=== PATIENT | female | born 2000 | race Caucasian/White ===

== ENCOUNTER 2018-10-27 15:15 | Observation (INO) ==
[~2018-10-27 15:15] MED LIST: LIDOCAINE W/ SODIUM BICARB 0.5 ML SYR ONE; Lactated Ringers 1,000 ML PRIMARY IV ONE; MIDAZOLAM HCL 2 MG/2 ML VIAL ONE; PROPOFOL 10 MG/1 ML (200 MG/20 ML) VIAL IV ONE; SUCCINYLCHOLINE CHLORIDE 20 MG/1 ML - 10 ML ONE; Sodium Chloride 0.9% 100 ML IV ONE; fentaNYL Inj 100 MCG/2 ML VIAL ONE
[2018-10-27 15:21] LABS: Hematocrit [HCT] 36.8 % (37.0-47.0); Hemoglobin [HGB] 12.4 g/dL (12.0-16.0); MEAN CORPUSCULAR HEMOGLOBIN 28.8 PG (27-31); MEAN CORPUSCULAR HGB CONC 33.7 g/dL (33-37); MEAN CORPUSCULAR VOLUME 85.4 FL (81-99); MEAN PLATELET VOLUME 9.9 FL (7.4-12.2); RED BLOOD COUNT 4.31 10^6/uL (4.20-5.40)
[2018-10-27] MEDS ORDERED: METHYLERGONOVINE MALEATE 0.2 MG/1 ML VIAL IM ONE (15:24)
--- NOTE | 2018-10-27 15:26 | OB.OP.NOTE ---
Operative Report Surgeon: Jose Anesthesia Type: General Anesthesia Provider: Federico Victoria CRNA Surgery Date: 10/27/18 Preoperative Diagnosis: Incomplete AB, Anembryonic gestation, vaginal bleeding Postoperative Diagnosis: Same Procedure: Exam under anesthesia. Suction D&C Estimated Blood Loss (mL): 100 Fluids: 1500 mL LR. Mefoxin 2 g IV. Methergine 0.2 mg IM. 50 mL of urine. EBL was 100 mL. The patient may have had 200 EBL in the clinic. Complications: None apparent No evidence of uterine perforation Findings at Surgery: The uterus sounded to 9.5 cm There was some tissue extracted with the suction curettage Good hemostasis at the completion of the suction D&C Indications for the Procedure: The patient is a 17-year-old last menstrual period who was [place] [facility] [place] 22 [place] and had a quantitative hCG 4781 with a come plane of vaginal bleeding. Ultrasound at that time showed an irregular gestational sac without a yolk sac or intrauterine . The patient was then seen in [place] on Thursday for increased bleeding. No ultrasound was completed. Quantitative hCG was sent out and we retrieved that result today and was 2101. The patient had an ultrasound and quantitative hCG today here which showed that the quantitative hCG was 521 and the ultrasound did not show a gestational sac. There was some tissue which measured 1-1/2 cm in total thickness which was thought to perhaps be retained products versus clot. The patient presents today for follow-up. The patient's having some cramping and some bleeding but the bleeding is much improved. Patient's blood type is Rh+-A positive. Past medical History without hypertension, diabetes or asthma. Past surgical history tonsils and adenoid No known drug allergies No tobacco, no alcohol, no drugs. Menarche age 8. This is the patient's first . Intake Chief Complaint: Menstrual irregularity Note(s): Patient is here for evaluation, miscarriage. [facility] Allergies Allergy/AdvReac Type Severity Reaction Status Date / Time No Known Allergies Allergy Verified 10/27/18 14:26 Home Medications Medication Instructions Recorded Confirmed Type NK [No Home Medications Reported] 05/28/13 10/27/18 History Multivitamin Tab 1 tab PO DAILY 10/21/18 10/27/18 History [ Plus Tab] Is last menstrual period known: LMP known Last menstrual period: 07/26/18 Visit Vitals 10/27/18 14:26 Blood Pressure 130/80 Blood Pressure Location Left Arm Blood Pressure Position Sitting Respiratory Rate 16 Pulse Rate 102 H Temperature 98.1 F Temperature Source Oral Pulse Ox 96 Review of Systems Const Reports as per HPI, Denies fatigue, Denies fever(s), Denies headache(s), Denies weight gain, Denies weight loss Eyes Denies blurry vision, Denies diplopia, Denies itchy eyes, Denies loss of vision, Denies pain ENT Denies abnormal hearing, Denies headache(s), Denies nasal discharge, Denies nasal obstruction, Denies sore throat Card Denies chest pain, Denies claudication, Denies dyspnea, Denies palpitations, Denies pedal edema Resp Denies cough, Denies dyspnea, Denies wheezing GI Denies abdominal pain, Denies constipation, Denies diarrhea, Denies nausea, Denies vomiting Reports as per HPI, Denies dysuria, Denies hematuria, Denies urinary frequency, Denies vaginal discharge Musc Denies abnormal gait, Denies back pain, Denies joint swelling, Denies muscle weakness Skin Denies changing lesions, Denies lesions, Denies pruritus, Denies rash Neuro Denies abnormal gait, Denies abnormal hearing, Denies focal weakness, Denies headache(s), Denies loss of vision Psych Denies abnormal sleep pattern, Denies anxiety, Denies irritability Endo Denies fatigue, Denies palpitations Casey/Lymph Denies easy bruising, Denies lymphadenopathy Aller/Immun Denies itchy eyes, Denies seasonal rhinorrhea, Denies uticaria, Denies wheezing Exam Const General: cooperative and comfortable; no in distress Orientation: alert and oriented x3 Resp Effort & Inspection: normal respiratory effort; no audible wheezes, labored, pursed lip breathing, retractions or stridor Auscultation: clear to auscultation bilaterally; no crackles, diminished lung sounds, rales, rhonchi or wheezes Cardio Rhythm: regular rhythm Heart Sounds: S1 normal and S2 normal; no click, gallop, murmur or rub GI Inspection: obesity Palpation: soft Auscultation: normal bowel sounds Other: The patient's cervix was open. There was a large clot at the cervical OS Clot was removed and some tissue was removed with the patient continued to bleed. Assessment & Plan Problems 1. Incomplete O03.4 The patient has an incomplete . Blood type is A+. The risks, benefits, alternatives and indication of a suction D&C were discussed with the patient. Infection, bleeding, pain, uterine perforation, damage to bowel, bladder, nerve, vessel, blood transfusion with associated risks, the risk of hysterectomy if bleeding were to continue, reaction to anesthesia possible and the low risk of were discussed with the patient. Consent form was signed. The patient is being brought to the operating room and to the hospital by ambulance from the medical office building secondary to the bleeding that the patient is having. Description of Procedure: The patient was taken to the operating room after the risks, benefits, alternatives and indication of the exam under anesthesia and suction D&C were discussed with the patient in detail and the consent forms were signed. The patient was placed in supine position on the operating room table and underwent general endotracheal anesthesia without complication. The patient had sequential compression devices on her feet. The patient was [facility] stirrups and the dorsal supine position. An exam under anesthesia was completed. There was some blood clot in the patient's vagina. The patient's cervix was open. I did not place my gloved digit through the patient's cervix to the lower uterine segment though. The patient was prepped and draped sterilely. A timeout for the patient and procedure and both were identified correctly. Patient's bladder was drained of urine about 50 mL. A weighted speculum was placed in the posterior vagina and a Craig retractor anteriorly and the cervix was visualized and a single-tooth tenaculum was used to grasp the anterior lip of the cervix. The uterus was sounded to 9.5 cm. The cervix was already dilated to a 30 Hanks dilator. A #9 and curved suction curette was selected. The curette was connected to the tubing and the suction sheeting was turned on and suction to 42-44 was noted on the dial. With my left hand I continue to hold the single-tooth tenaculum maintaining some traction. I placed the #9 curved curet through the patient's cervix into the uterine cavity and then applied the suction. Blood and some tissue were obtained. This was completed 3 different times initially. I then used the #9 suction curet again and obtained another small amount of tissue and some blood. Then there was minimal bleeding. A sharp curette was then used and there was a good crigh in all 4 quadrants. Surgeon 0.2 mg IM was administered by anesthesia. The procedure was then completed. Some exudate was noticed at the patient's urethra. A GC and chlamydia swab for PCR testing was completed by swabbing the patient's urethra. The tenaculum was removed from the anterior lip of the cervix. There is no bleeding from the anterior lip of the cervix. An bimanual exam under anesthesia showed that the patient's cervix was closing and there was minimal bleeding. I could not palpate the fundus of the uterus well secondary to the patient's body habitus. With the weighted speculum placed again and the Craig retractor there was minimal to no bleeding from the patient's cervix. Irrigation was used to irrigate the vaginal area and then suction. The procedure was completed. The patient was awakened from her general endotracheal anesthesia. The patient was brought to the PACU in stable condition. Of note, the patient did have mild hypertension with a blood pressure that was elevated on 10/21/2018 [place] [facility] [place] then she had a mildly elevated blood pressure in the PACU. Her blood pressure in the clinic was normal. In the operating room, the patient's blood pressure was normal and anesthesia felt comfortable administering the IM Methergine. Plan: The GC and chlamydia swab was brought to the lab so the test can be run. Anesthesia thought that the patient did very well hemodynamically in the operating room. In the PACU, the patient was questioned if she would be able to go home since she drove here and [place] more than an hour away where there is no significant hospital availability. The patient stated that she would need to stay the night since she would not be able to drive and she drove here. The plan was to admit the patient to observation overnight since she would not be able to drive home. The patient would be administered oral Methergine every 8 hours to continue to allow the uterus to clamp down.
[2018-10-27] MEDS ORDERED: CefOXitin Inj 2 GM in Sodium Chloride 0.9% 100 ML IV ONE (16:00)
[2018-10-27] MEDS ORDERED: KETOROLAC 30 MG/1 ML VIAL ONE (16:14)
[2018-10-27] MEDS ORDERED: IBUPROFEN 800 MG TABLET PO PRN (16:39)
[2018-10-27] MEDS ORDERED: HYDROcodone-APAP 5 MG -325 MG TABLET PO PRN (16:39)
--- NOTE | 2018-10-27 16:47 | CRNA.PROGR ---
Post Anesthesia Phase II - Post Anesthesia Phase II Patient Stable and Discharged To: Phase II Care Assumed By Surgeon: Augustine Garcia MD Temperature: 96.8 F Pulse Rate: 87 Respiratory Rate: 12 Blood Pressure: 134/90 Pulse Ox: 98 Total Rand Score at Discharge: 10 Post Anesthesia Discharge Criteria Met: Yes
--- NOTE | 2018-10-27 16:47 | CRNA.PROGR ---
Anesthesia Time - Procedure/Recovery Time Start Date: 10/27/18 End Date: 10/27/18 Anesthesia : Time In: 15:28 Anesthesia : Time Out: 16:10 Anesthesia : Total Time: 42 - Total Anesthesia Time Total Anesthesia Time (minutes): 42 - Other Physical Status: P2 Anesthesia Type: General Anesthesia : ET
[2018-10-27] MEDS: Lactated Ringers 1,000 ML PRIMARY IV SCH (18:19)
[2018-10-28] MEDS: Methylergonovine Tab 0.2 MG TAB PO SCH ×2 (00:18→09:57)
[2018-10-28] MEDS: Lactated Ringers 1,000 ML PRIMARY IV SCH (04:04)
[2018-10-28 05:14] LABS: BASOPHILS # (AUTO) 0.02 10*3/UL; BASOPHILS % (AUTO) 0.4 % (0-1); EOSINOPHILS # (AUTO) 0.07 10*3/UL; EOSINOPHILS % (AUTO) 1.3 % (0-8); Hematocrit [HCT] 31.4 % (37.0-47.0); Hemoglobin [HGB] 10.5 g/dL (12.0-16.0); LYMPHOCYTES # (AUTO) 2.65 10*3/uL; MEAN CORPUSCULAR HEMOGLOBIN 29.2 PG (27-31); MEAN CORPUSCULAR HGB CONC 33.4 g/dL (33-37); MEAN CORPUSCULAR VOLUME 87.5 FL (81-99); MEAN PLATELET VOLUME 10.5 FL (7.4-12.2); MONOCYTES # (AUTO) 0.33 10*3/UL (0.3-0.8); MONOCYTES % (AUTO) 5.9 % (5-15); NEUTROPHILS # (AUTO) 2.49 10*3/UL; NEUTROPHILS % (AUTO) 44.6 % (50-80); RED BLOOD COUNT 3.59 10^6/uL (4.20-5.40)
[2018-10-28 05:15] LABS: PLATELET MORPHOLOGY COMMENT NORMAL MORPHOLOGY (NORM); RBC MORPHOLOGY COMMENT NORMAL MORPHOLOGY (NORM); WBC MORPHOLOGY COMMENT NORMAL MORPHOLOGY (NORM)
[2018-10-28 08:29] VITALS: BP 136/68; RESP 20; TEMP 97.8; O2SAT 99
--- NOTE | 2018-10-28 09:58 | PDOC(PROG) ---
Subjective Post Op Day: 1 Pain Management: PO Mcnair Catheter: No Concerns / Additional Information: The patient is doing much better this morning. Minimal bleeding. No abdominal pain. The patient wants to go home. Objective - General General Appearance: POSITIVE: No Acute Distress, Cooperative - Cardiovacular Cardiovascular Exam: POSITIVE: RRR Edema: +1 Pedal Edema Extremities: Negative Dalia's - Bilaterally - Respiratory Respiratory Exam: POSITIVE: Clear to Auscultation - Bilaterally - Abdomen Bowel Sounds: Present Other Abdominal Exam Details: Obese,. Nontender without guarding or rebound Assesstment / Plan Assessment / Plan: Assessment: Postoperative day #1 status post urgent D&C for incomplete with vaginal bleeding. The patient's hemoglobin and hematocrit are 10.5 and 31.4. White count was normal. Patient has minimal bleeding. The patient is doing well. The patient's blood pressures are minimally elevated in the 140s over high 80s to low 90s. Plan: The patient will be discharged home. The patient should follow-up with me in 2 weeks. Please make the appointment before having the patient LEEP today. The patient should follow up with her primary care physician also for her elevated blood pressures. The patient needs to be evaluated for hypertension. The patient and I also discussed contraception and in 2 weeks when I see her, we will discuss contraception again. The patient did inform me that this was not a planned and she was not using anything for contraception. The patient stated that she would like to use contraception. The patient should take a multivitamin with 400 g of folic acid daily. Discharge medications: Ibuprofen 800 mg 1 tablet by mouth 3 times a day with food or milk for 5 days then 3 times a day as needed Ferrous sulfate 325 mg 1 tablet by mouth daily #30 no refills Colace 100 mg capsule 1 capsule by mouth daily to twice a day when necessary constipation The patient should drink at least 8-10 glasses of water per day The patient may start exercising in about 1 week. Patient may gradually increase her exercising. The patient should be given usual precautions to return for fever, increasing abdominal pain or other symptoms.
== END 2018-10-28 11:20 | disposition home or self-care (01) ==
LOC: OR 15:15 → MED/SURG 15:15 → OPS 16:27 → MED/SURG 16:30
PROVIDERS: ADMIT Obstetrics & Gynecology; ATTEND Obstetrics & Gynecology